=== PATIENT | female | born 1980 | race Native Hawaiian/Other Pacific Islander ===

== ENCOUNTER → 2025-01-08 09:47 | Outpatient (CLI) | payer OTHER, SELFPAY ==
--- NOTE | 2025-01-08 10:03 | DIAB.MNT ---
Initial Diabetes Medical Nutrition Therapy Assessment Name: Swati Kenyon Date: 01/08/25 Time: [id number] Dx: Type II Diabetes Provider: Cee Pinto Preferred Learning Style: Reading/Doing Swati presents for initial DM visit newly diagnosed with T2DM in July of 2024 with hgA1c of 6.5%. Endorses FH of DM with maternal grandmother. Endorses PMH of prediabetes and PCOS. Lives with her two school aged children. One with autism and the other child with some food sensory limitations. Feels that between the therapy schedules and food options, eating healthful can be a challenge. Over six months lost 15# but gained back. Reports a lot of cravings. Use to drink a lot of soda. Use to smoke marijuana, but has stopped. use to use this for stress and anxiety. Stopped for last 3 months. Overall, endorses a lot of stress. Unclear of if had GDM hx. States she did not check BG but remembers an in office check that was elevated. Preeclampsia with both pregnancies and pre term births. Wants to know her BG goals, a meal plan example, and more about DM in general. Sees PCP at end of month. Due for labs. Often forgetting to take second dose of Metformin. States she does not want to just eat to take a med and forgets at dinner often. Diet Recall: 830a: nothing or eggs with cheese and turkey lucio with coffee and creamer 10a: fruit or muffin or sandwich on ww bread 2p: noodles with veg and meat 2c OR sandwich OR pasta salad with seafood salad and coleslaw 430p: half tuna sandwich OR donut 7p: sushi bowl with salmonand rice x 1c OR fast food ie fish sandwich with med fries (80g CHO) 9p: 1/2 renetta bar OR 3/4c ice cream water 72oz coffee 2c with creamer tea unsweet 24oz diet soda 1x per day 16oz Anthropometrics: Ht: 64 Wt: 270# reported Physical Activity: Just started the gym. Met with a program trainer for some education. Goal of 2-3 days per week. 25-30 min walking (more brisk walking) x 0-1 per week. Self-Monitoring Blood Glucose: Checking FBG. Range 90-120s usually, but can be 140s and highest 167mg/dl. Diabetes Medications: 500mg Metformin BID Pertinent Labs: HgA1c: 6.5% 07/2024 Past Medical History: Keratoconus of both eyes, BMI 45-49.9, reported PCOS Nutrition Rx: Carbohydrates: Meal: 30-45g Snack: 15-30g Nutrition Diagnosis: - Nutrition and food related knowledge deficit r/t new dx of T2DM aeb hgA1c 6.5% and pt report Intervention: This participant was very receptive. Provided appropriate educational handouts. Discussed the following topics: Completed intake assessment. Discussed barriers to care. Pathophysiology of T2DM HgA1c, its correlation to blood glucose numbers, and rationale for goal Importance of self-monitoring, how often, and when to check. Suggested checking at different times to evaluate meals Plate Method, impact of macronutrients on blood sugar, meal timing, carbohydrate counting, pairing macronutrients and spreading out carbohydrates for better blood glucose management Recommended servings for carbohydrates at meals and snacks Heart health nutrition Brainstormed appropriate meal plan based on food preferences Role of physical activity PCOS and insulin resistance Eating out in brief Metformin action, SE and recommendations Created SMART goals for patient self-care and success. Goals: Gym 2-3x per week Take Metformin consistently in evening Bring BG log Follow CHO recs Pair CHO and proteins Follow-up: XU MARTIN follow-up in 3-4 weeks. Will discuss eating out more in depth next visit. Ibis Valenzuela RDN, [facility] Certified Diabetes Care and Supervisor Floor Assembly P: [phone] Thank you for this referral
== END ==
LOC: DIET 09:49
PROVIDERS: PCP Physician Assistant; Referring Provider Physician Assistant
DX: E11.9 Type 2 diabetes mellitus without complications (principal); Z83.3 Family history of diabetes mellitus; Z71.3 Dietary counseling and surveillance; Z79.84 Long term (current) use of oral hypoglycemic drugs
CPT/HCPCS: 97802

== ENCOUNTER → 2025-02-04 09:42 | Outpatient (CLI) | payer OTHER, SELFPAY ==
--- NOTE | 2025-02-04 09:54 | DIAB.MNTFU ---
Follow-up Diabetes Medical Nutrition Therapy Assessment Name: Swati Kenyon Date: 02/04/25 Time: 10-1050a Dx: Type II Diabetes Provider: Cee Pinto Swati presents for initial DM visit newly diagnosed with T2DM in July of 2024 with hgA1c of 6.5%. Endorses FH of DM with maternal grandmother. Endorses PMH of prediabetes and PCOS. Some difficulty lately with birthdays and food lately. Threw away leftover cake Started a GLP1-- insurance would cover Bydureon weekly made some diet changes-- cut out rice and pastas, increased veggies Started a statin, has questions about reason to take this. eating healthful can be a challenge with balancing different kids' food acceptance, though she seems to be doing well with this. Overall, endorses a lot of stress but started anti-anxiety med. Now taking Metformin consistently Eating out less. Questions about total CHO vs net CHO Drinking more tea Diet Recall: 830a:greens with eggs and cheese, protein tortilla, +/- coffee with premier protein 10a: cheese stick or almonds 2p: pork 4oz, half cup veggies 430p: protein shake +/- beek jerky 7p: dark green veggies or salad and protein 9p: nothing or small portion dark chocolate or oikos low CHO yogurt water 26oz x 3 coffee tea unsweet hot tea diet soda discontinued Anthropometrics: Ht: 64 Wt: 285# yesterday (down 7# from last month reported) Physical Activity: Less gym this month, walking 2x per week 30-40 mins. Self-Monitoring Blood Glucose: checking FBG and a few pc readings. Two pc readings since last visit of 114 and 140 both in goal. FBG have increased despite diet changes. Has recently cut out HS snack, gwen phenomenon? Date Pre Post Pre Post Pre Post notes 01/29 151 01/30 160 01/31 141 02/01 105 02/02 130 140 02/03 130 02/04 137 Diabetes Medications: 1000mg Metformin XR BID 2mg Bydureon weekly Pertinent Labs: HgA1c: 6.5% 07/2024 6.6% 01/2025 Total cholesterol: 188 T HDL: 52 LDL: 118H Past Medical History: Keratoconus of both eyes, BMI 45-49.9, reported PCOS Nutrition Rx: Carbohydrates: Meal: 30-45g Snack: 15-30g Nutrition Diagnosis: - Nutrition and food related knowledge deficit r/t new dx of T2DM aeb hgA1c 6.5% and pt report- in progress - Predicted inadequate fiber intake r/t elimination of carb intake for lowering BG aeb pt report- new Intervention: This participant was very receptive. Provided appropriate educational handouts. Discussed the following topics: Label reading Cholesterol MNT Role of statin Carb portion recs Protein shakes as a tool Fiber MNT Beans nutritional benefit and carb content Kj seed recipe Gwen phenomenon HS snack ideas BG review and goals Created SMART goals for patient self-care and success. Goals: Gym 2-3x per week- in progress Take Metformin consistently in evening- met Bring BG log- met Follow CHO recs - met Pair CHO and proteins- met Try evening paired snack- new Try kj seed pudding- new Follow-up: XU MARTIN follow-up in 4-6 weeks. Ibis Valenzuela RDN, [facility] Certified Diabetes Care and Legal Support Manager P: [phone] Thank you for this referral
== END ==
PROVIDERS: PCP Physician Assistant; Referring Provider Physician Assistant
DX: E11.9 Type 2 diabetes mellitus without complications (principal); Z71.3 Dietary counseling and surveillance; E28.2 Polycystic ovarian syndrome; Z83.3 Family history of diabetes mellitus; Z79.84 Long term (current) use of oral hypoglycemic drugs
CPT/HCPCS: 97803

== ENCOUNTER → 2025-04-01 10:00 | Outpatient (CLI) | payer OTHER, SELFPAY ==
--- NOTE | 2025-04-01 10:03 | DIAB.MNTFU ---
Follow-up Diabetes Medical Nutrition Therapy Assessment Name: Swati Kenyon Date: 04/01/25 Time:a Dx: Type II Diabetes Provider: Cee Longoria presents for DM visit virtually using [facility]. Newly diagnosed with T2DM in July of 2024 with hgA1c of 6.5%. Endorses FH of DM with maternal grandmother. Endorses PMH of prediabetes and PCOS. Bydureon-- her last dose was last week. The med was discontinued. Plans to try a prior authorization for a different GLP1. Bought protein bars to try and satiate sweet cravings. with 3g net CHO, also having this with her coffee in the morning. Diet Recall: 830a:protein bar and coffee OR greens with 3 eggs and cheese, +/- turkey sausage, low CHO bread or tortilla, +/- coffee with premier protein OR pb on low CHO bread 10a: nothing OR cheese stick and pepperoni slices or almonds or berries 12p: salads with tuna 3p: cherries OR yogurt +/- berries 7-8p: veggies and protein OR [place] take out (ordering more veggies and meat) HS: nothing or string cheese water coffee tea unsweet hot tea protein shake diet soda on occasion Clothes feeling loser. Less pain. Able to be more active with kids. Went to the zoo recently. A lot of walking. Endorses more stamina. Plans for hysterectomy coming up. questions about if this will impact BG management. 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 UTD on dental Eye appt at the end of the month Puts lotion on feet each night. Checks them eat night. Anthropometrics: Ht: 64 Wt: 285# 02/2025 Physical Activity: Walking 2x per week 30-40 mins. No gym right now consistently. Self-Monitoring Blood Glucose: checking FBG and much improved since last visit. Feeling as though she knows what impacts Bg and what doesn't based on finger sticks. Reports high for her was 130mg/dl fasting without HS snack. When trying a new food will check BG pc at pre meal, 1 and 2 hour. Date Pre Post Pre Post Pre Post notes 03/26 94 03/27 85 03/28 116 03/29 98 03/30 85 03/31 113 04/01 96 Diabetes Medications: 1000mg Metformin XR BID 2mg Bydureon weekly Pertinent Labs: HgA1c: 6.5% 07/2024 6.6% 01/2025 Total cholesterol: 188 T HDL: 52 LDL: 118H Past Medical History: Keratoconus of both eyes, BMI 45-49.9, reported PCOS Nutrition Rx: Carbohydrates: Meal: 30-45g Snack: 15-30g Nutrition Diagnosis: - Nutrition and food related knowledge deficit r/t new dx of T2DM aeb hgA1c 6.5% and pt report- improved - Predicted inadequate fiber intake r/t elimination of carb intake for lowering BG aeb pt report- improved Intervention: This participant was very receptive. Provided appropriate educational handouts. Discussed the following topics: Label reading for net CHO Unlikely impact of just uterus removal on BG management but encouraged further discussion with provider DM complication risk reduction Fiber and CHO intake recs Sustainability of diet changes BG review and goals Created SMART goals for patient self-care and success. Goals: Try evening paired snack- met Try kj seed pudding- in progress Continue diet changes- new Start prior auth process for new GLP1- new Follow-up: XU MARTIN follow-up prn. Swati seems to be managing her DM very well. Encouraged her to call or message prn. She agreed. Ibis Valenzuela RDN, [facility] Certified Diabetes Care and [place] Alarm Installer P: [phone] Thank you for this referral
== END ==
PROVIDERS: PCP Physician Assistant; Referring Provider Physician Assistant
DX: E11.9 Type 2 diabetes mellitus without complications (principal); Z83.3 Family history of diabetes mellitus; E28.2 Polycystic ovarian syndrome; Z79.85 Long-term (current) use of injectable non-insulin antidiabetic drugs; Z79.84 Long term (current) use of oral hypoglycemic drugs; Z71.3 Dietary counseling and surveillance
CPT/HCPCS: 97803